=== PATIENT | male | born 1995 | race Caucasian/White ===

== ENCOUNTER 2018-06-26 22:36 | Emergency (ER) | payer MEDICAID ==
[~2018-06-26] VITALS: Ht 165.1 cm; Wt 69.9 kg
--- NOTE | 2018-06-26 22:51 | NUR ---
BIB SELF SACRAL PAIN SINCE WEDNESDAY. UPON INSPECTION CYST LIKE OBJECT TO SACRAL AREA. REDNESS WITH NO BLEEDING. NAD. VSS. AWAITING MD ORDERS.
[2018-06-26] MEDS ORDERED: LIDOCAINE 1%-EPI 1:100,000 20 ML VIAL ONE (22:53)
[2018-06-26] MEDS ORDERED: LIDOCAINE 1%-EPI 1:100,000 20 ML VIAL TP ONE (23:00)
[2018-06-26] MEDS ORDERED: CEPHALEXIN MONOHYDRATE 500 MG CAPSULE PO ONE ×2 (23:27→23:30)
--- NOTE | 2018-06-26 23:36 | NUR ---
Patient discharged to home in stable condition. Written and verbal after care instructions given. Patient verbalizes understanding of instruction. PT AMBULATED WITH STABLE GAIT UPON DC.
[2018-06-26 23:37] VITALS: BP 117/70
== END 2018-06-26 23:38 | disposition home or self-care (01) ==
LOC: ER 22:36
DX: L05.01 Pilonidal cyst with abscess (principal)
CPT/HCPCS: 10080; 99284; A4606; A6407; J3490; Z7610